=== PATIENT | male | born 2000 | race African-American/Black ===

== ENCOUNTER 2022-06-18 08:39 | Emergency (ER) | payer SELFPAY ==
[2022-06-18 08:41] VITALS: BP 133/69; PULSE 106; RESP 25; TEMP 36.1; O2SAT 98; BMI 23.7
--- NOTE | 2022-06-18 08:45 | EKG12_ITS ---
Test Reason : SEIZURE Blood Pressure : / mmHG Vent. Rate : 132 BPM Atrial Rate : 132 BPM P-R Int : 128 ms QRS Dur : 086 ms QT Int : 296 ms P-R-T Axes : 080 090 033 degrees QTc Int : 438 ms Sinus tachycardia Right atrial enlargement Rightward axis Pulmonary disease pattern Abnormal ECG Confirmed by CASSANDRA BOWMAN, MARCELL ([id number]), school photograph editor KAIA SINGH ([id number]) on 06/19/2022 1:11:46 PM Referred By: MP Confirmed By:DENVER TRUJILLO MD
--- NOTE | 2022-06-18 08:55 | EX.ED.DYSGE1 ---
HPI History of Present Illness Chief Complaint: Seizure Informant: family Limited: other (Post ictal state) Onset/Context/Timing Onset: Today Context: Sudden Onset Timing: Intermittent Quality: Tonic-clonic Location: Generalized Worsened by: Nothing Relieved by: Nothing Narrative Narrative: Patient presents with a seizure that occurred today. Patient has a history of seizures and is postictal. Patient is a poor informant. Information was obtained from the patient's brother. He was staying next-door and patient's friends came over to get him and told him he was having a seizure. Brother states that the seizure today was more intense than his typical seizures but was otherwise typical of his seizures. Patient is on gabapentin and divalproex for seizures. Brother states he does not think patient missed any doses of his medications. Brother states patient has a history of prior brain surgery for intracranial bleeding. Brother states the patient developed seizures after this. Prior similar symptoms: Yes PFSH [facility] Medical History (Updated 06/18/22 @ 10:[address] 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 Seizure Home Medications divalproex 500 mg tablet,delayed release 500 mg PO TID 06/18/22 [History Last Taken Unknown] gabapentin 800 mg tablet 800 mg PO TID 06/18/22 [History Last Taken Unknown] levetiracetam 750 mg tablet 1,500 mg PO BID 06/18/22 [History Last Taken Unknown] naproxen 500 mg tablet 500 mg PO BID 06/18/22 [History Last Taken Unknown] Allergy/AdvReac Type Severity Reaction Status Date / Time fosphenytoin Allergy NEEDS Verified 06/18/22 09:43 FOLLOW-UP Surgical History Hx of fasciotomy Social History Smoking Status: Unknown if ever smoked ROS ROS ED Review of Systems ROS Unobtainable: due to mental condition and due to mental status EXAM Physical Exam Const Vital Signs: 06/18/22 08:41 06/18/22 08:59 06/18/22 09:18 Temperature 96.9 F L Temperature Source Temporal Pulse Rate 106 H 106 H 96 Respiratory Rate 25 H 28 H 20 H Blood Pressure 133/69 H 126/114 H 107/70 Blood Pressure Mean 90 118 82 Pulse Ox 98 96 100 Oxygen Delivery Method Nasal Cannula Nasal Cannula Nasal Cannula Oxygen Flow Rate (L/min) 4 4 4 Positive well nourished and well developed General Appearance ED: well developed and NAD HEENT Reports moist mucous membranes Neck supple and no JVD Chest Wall inspection of chest normal and palpation of chest normal Resp normal respiratory effort Auscultation: rhonchi Cardio regular rhythm Rate: tachycardic GI non-tender and non-distended Palpation: soft Extremity Extremity Narrative: There are fasciotomy scars noted in both forearms and right lower leg. Neuro Sensorium / Orientation: orientation impaired MDM MDM MDM Narrative Medical decision making narrative: Seizure precautions were maintained. EKG was obtained. On my interpretation it shows sinus tachycardia with a rate of 132 bpm. OK interval was normal at 128 ms. QRS interval was normal at 86 ms. QTc interval was normal at 438 ms. [place] was normal at 90. There is right atrial enlargement. There are no acute ST or T wave changes noted. There are no prior EKGs available for comparison. Portable chest x-ray was obtained. There is 1 view. On my independent interpretation, there is atelectasis versus scarring in the bases bilaterally. There is no infiltrate noted. There is no pneumothorax. Bony thorax was normal. There is no cardiomegaly. Radiologist also interpreted the x-ray and agrees. CBC was obtained and was reviewed. There is a mild leukocytosis of 15.1. This is most likely from the seizure. Hemoglobin and hematocrit are stable. Platelet count is normal. Comprehensive metabolic profile was obtained with was reviewed. Creatinine was slightly elevated at 1.36. CO2 was slightly low at 18. This is also likely due to the seizure. Glucose was elevated at 271. An anion gap was normal. Electrolytes were normal. Valproic acid level was obtained and was reviewed. This is subtherapeutic at 11. Patient is more awake and alert on reevaluation. Patient is resting comfortably. Patient and mother were advised of the findings. Mother was instructed to continue the medications as previously prescribed. Mother was instructed to follow-up with his primary care physician and neurologist in 5 to 7 days. Mother understood and was agreeable with the plan. All questions were answered. Lab Data Attestation: I reviewed the patient's lab results. Labs: Laboratory Results - last 24 hr 06/18/22 06/18/22 06/18/22 08:29 08:29 08:29 WBC 15.1 H RBC 5.09 Hgb 14.0 Hct 45.7 MCV 89.8 MCH 27.5 MCHC 30.6 L RDW Std Deviation 49.7 H RDW Coeff of Brian 14.8 H Plt Count 330 MPV 10.0 Immature Gran % (Auto) 0.700 Neut % (Auto) 19.6 L Lymph % (Auto) 71.1 H Mcleod % (Auto) 6.5 Eos % (Auto) 1.5 Baso % (Auto) 0.6 Absolute Neuts (auto) 3.0 Absolute Lymphs (auto) 10.73 H Nucleated RBC % 0 Differential Comment Reactive Lymphocytes 1+ Sodium 138 Potassium 3.8 Chloride 105 Carbon Dioxide 18.0 L Anion Gap 15 BUN 18 Creatinine 1.36 H Estim Creat Clear Calc 76.53 Est GFR (MDRD) Af Amer 77 Est GFR (MDRD) Non-Af 64 BUN/Creatinine Ratio 13.2 Glucose 271 H Calcium 10.1 Total Bilirubin 0.30 AST 17 ALT 25 Alkaline Phosphatase 103 Total Protein 9.2 H Albumin 4.0 Globulin 5.2 H Albumin/Globulin Ratio 0.8 L Valproic Acid 11 L Radiography Diagnostic Testing: Clinical Impression(s) from Imaging Studies Chest X-Ray 06/18/22 09:05 IMPRESSION: Increased linear markings at the left lung base suggestive of either linear atelectasis and/or scarring. Electronically Signed: Laron Farmer MD at 10:18 EST , EKG Initial EKG: Attestation: I personally reviewed and interpreted this EKG as follows: Interpretation: No Acute Injury Pattern and Sinus Tachycardia (132) Comments: Right atrial enlargement Prior EKG tracings: not available for review Prior: No Prior Discharge Plan Triage Chief Complaint: Seizure ED Provider: Sunil Hernandse Dx/Rx/DC Orders Clinical Impression: Breakthrough seizure, Seizure disorder Instructions: ED Seizure, Recurrent (Adult) Prescriptions: No Action divalproex 500 mg Tablet,Delayed Release (Dr/Ec) 500 mg PO TID gabapentin 800 mg Tablet 800 mg PO TID levetiracetam 750 mg Tablet 1,500 mg PO BID naproxen 500 mg Tablet 500 mg PO BID Primary Care Provider: Care Physician,No Primary Referrals: NOT,DEFINED [Non-Staff] - 5-7 Days Disposition Disposition: Home, Self Care
[2022-06-18 08:59] VITALS: BP 126/114; PULSE 106; RESP 28; O2SAT 96
--- NOTE | 2022-06-18 09:05 | RAD_ITS ---
STUDY: X-RAY CHEST REASON FOR EXAM: Male, 32 years old. History of seizures. TECHNIQUE: Single AP portable view of the chest. COMPARISON: None. FINDINGS: EKG electrodes are seen. Increased linear markings at the left lung base suggestive of left basilar atelectasis and/or scarring. There is no demonstrated pleural abnormality. Normal size heart. Normal mediastinum and yariel. Normal visualized pulmonary arteries. Normal visualized aortic arch and descending thoracic aorta. Normal visualized thoracic spine. Normal visualized ribs, clavicles, and shoulders. There is no demonstrated abnormality of the visualized soft tissue structures of the upper abdomen. RAD/Chest 1 View (Portable) IMPRESSION: Increased linear markings at the left lung base suggestive of either linear atelectasis and/or scarring. Electronically Signed: Laron Farmer MD at 10:18 EST ,
[2022-06-18 09:12] LABS: Absolute Lymphocyte Count 10.73 X10^3/uL (0.83-4.51); Basophil# 0.09 X10^3/uL; Basophil% 0.6 % (0-1); Eosinophil# 0.22 X10^3/uL; Eosinophils% 1.5 % (0-5); Hematocrit 45.7 % (40-54); Lymphocyte # 10.73 X10^3/ul (0.83-4.51); Lymphocyte % 71.1 % (19-41); Mean Corp Hgb Conc 30.6 g/dL (32-36); Mean Corpuscular Hgb 27.5 pg (27.0-32.0); Mean Corpuscular Volume 89.8 fL (80-94); Monocyte# 0.98 X10^3/uL; Monocyte% 6.5 % (0-10); NRBC Flagged by Analyzer 0 % (0-5); Neutrophil # 2.98 X10^3/uL (2.7-7.7); Neutrophil % 19.6 % (47-70); POSITIVE DIFFERENTIAL YES; POSITIVE MORPHOLOGY YES; Platelet Count 330 K/mm3 (150-450); RBC Distribution Width CV 14.8 % (11.6-14.6); RBC Distribution Width SD 49.7 fl (35.1-43.9); Red Blood Count 5.09 M/mm3 (4.6-6.2); White Blood Count 15.1 K/mm3 (4.4-11.0)
[2022-06-18 09:14] LABS: Differential Indicated SCAN CRITERIA MET
[2022-06-18] MEDS: 0.9% Normal Saline 1,000 ML 1000 ML IV (09:17)
[2022-06-18 09:18] VITALS: BP 107/70; PULSE 96; RESP 20; O2SAT 100
[2022-06-18 09:25] LABS: ALB/GLOB Ratio 0.8 RATIO (0.9-2.4); AST(SGOT) 17 U/L (15-37); Alanine Aminotransfer ALT/SGPT 25 U/L (16-61); Alkaline Phosphatase 103 U/L (45-117); Anion Gap 15 (5-15); BUN 18 mg/dL (7-18); BUN/Creat Ratio 13.2 RATIO (10-20); Calcium,Total 10.1 mg/dL (8.5-10.1); Chloride 105 mmol/L (98-107); Creatinine, Serum 1.36 mg/dL (0.70-1.30); EST Glomerular Filtration Rate 64 mL/min (>60); Est Glom Filt Rate - Afr Amer 77 mL/min (>60); Estimated Creatinine Clearance 76.53 ml/min; Globulin 5.2 g/dL (2.2-4.2); Glucose 271 mg/dL (74-106); Potassium 3.8 mmol/L (3.5-5.1); Protein, Total 9.2 g/dL (6.4-8.2); Sodium Level 138 mmol/L (136-145)
[2022-06-18 09:38] LABS: Reactive Lymphocyte 1+
[2022-06-18 10:14] LABS: Valproic Acid (Depakene) Level 11 ug/mL (50-100)
--- NOTE | 2022-06-18 10:30 | ED.RN ---
PT REOMOEVES SELF FROM MONITOR. THIS RN AT BEDSIDE TO REPLACE MONITOR. PT REFUSING MONITOR AT THIS TIME.
[2022-06-18] MEDS: Acetaminophen 500 MG Tablet 1000 MG PO (11:37)
[2022-06-18 12:00] VITALS: RESP 18
== END 2022-06-18 12:01 | disposition home or self-care (01) ==
PROVIDERS: Emergency Provider Emergency Medicine; Visit Provider Emergency Medicine
DX: G40.909 Epilepsy, unspecified, not intractable, without status epilepticus (principal)
CPT/HCPCS: 71045; 80053; 80164; 85025; 93005; 99285; A4216